=== PATIENT | female | born 1965 | race American Indian/Alaskan Native ===

== ENCOUNTER 2020-09-06 | Emergency (ER) | payer MEDICAID, MEDICARE ==
--- NOTE | 2020-09-06 00:29 | EDM.PDOC ---
ED HPI GENERAL MEDICAL PROBLEM - General Chief Complaint: ENT Problem Stated Complaint: TOOTH PAIN Time Seen by Provider: 09/06/20 00:29 Source of Information: Reports: Patient, Old Records, RN History Limitations: Reports: No Limitations - History of Present Illness INITIAL COMMENTS - FREE TEXT/NARRATIVE: 55 yo NA female presents with dental pain. She has an upcoming appt for removal of the rest of her teeth. Had a fever 3 d ago, but not since. No def'n facial swelling. Has end stage renal failure. Is concerned about taking anything that might hurt her kidneys. Her pain has been moving around in her mouth and fluctuating in severity. Has been using acetaminophen with partial benefit. Onset: Gradual Duration: Day(s):, Waxing/Waning Location: Reports: Face (mouth) Quality: Reports: Ache Severity: Moderate Improves with: Reports: Medication Worsens with: Reports: Other (time) Context: Reports: Other (See HPI) Associated Symptoms: Denies: Fever/Chills Treatments ORACLE APPLICATION ARCHITECT: Reports: Acetaminophen Right Lower Tooth/Teeth Pain Score (Numeric/FACES): 6 - Related Data Allergies Allergy/AdvReac Type Severity Reaction Status Date / Time No Known Allergies Allergy Verified 09/06/20 00:17 Home Meds: Home Meds . [Unable to Verify Home Med List] 09/06/20 [History] Past Medical History Genitourinary History: Reports: Chronic Renal Insuffiency, Renal Disease Social & Family History - Tobacco Use Tobacco Use Status *Q: Heavy Tobacco User Years of Tobacco use: 30 Packs/Tins Daily: 0.5 - Caffeine Use Caffeine Use: Reports: Coffee - Recreational Drug Use Recreational Drug Use: No ED ROS ENT - Review of Systems Review Of Systems: See Below Constitutional: Reports: No Symptoms HEENT: Reports: Dental Pain Respiratory: Reports: No Symptoms Cardiovascular: Reports: No Symptoms Endocrine: Reports: No Symptoms GI/Abdominal: Reports: No Symptoms : Reports: Other (has renal failure) Skin: Reports: No Symptoms Neurological: Reports: No Symptoms ED EXAM, ENT - Physical Exam Exam: See Below Exam Limited By: No Limitations General Appearance: Alert, WD/WN, No Apparent Distress, Thin Eye Exam: Bilateral Eye: Normal Inspection Ears: Normal External Exam, Normal Canal, Hearing Grossly Normal Nose: Normal Inspection, No Blood Mouth/Throat: Normal Lips, Dental Pain (many teeth decayed to the gum line. ). No: Normal Teeth Head: Atraumatic, Normocephalic. No: Facial Swelling Neck: Normal Inspection Respiratory/Chest: No Respiratory Distress Cardiovascular: Regular Rate, Rhythm Neurological: Alert, Oriented, CN II-XII Intact, Normal Cognition, No Mo tor/Sensory Deficits Psychiatric: Normal Affect, Normal Mood Skin: Warm, Dry, Intact, Normal Color, No Rash Course - Vital Signs Last Recorded V/S: Last Vital Signs Temp 36.2 C 09/06/20 00:15 Pulse 78 09/06/20 00:15 Resp 20 09/06/20 00:15 BP 184/97 H 09/06/20 00:15 Pulse Ox 100 09/06/20 00:15 Departure - Departure Time of Disposition: 00:43 Disposition: Home, Self-Care 01 Condition: Good Clinical Impression: Pain, dental - Discharge Information *PRESCRIPTION DRUG MONITORING PROGRAM REVIEWED*: No *COPY OF PRESCRIPTION DRUG MONITORING REPORT IN PATIENT ENOC: No Referrals: Rabia Basilio I COMPUTER TECH [Primary Care Provider] - Forms: ED Department Discharge Additional Instructions: Take either acetaminophen OR [place] for pain relief as needed. Take amoxicillin as directed for infection. See your oral surgeon as scheduled. Return as needed. Sepsis Event Note (ED) - Evaluation Sepsis Screening Result: No Definite Risk - Focused Exam Vital Signs: Vital Signs Temp Pulse Resp BP Pulse Ox 09/06/20 00:15 36.2 C 78 20 184/97 H 100
== END 2020-09-06 00:49 | disposition home or self-care (01) ==
LOC: JP.ED
DX: K02.9 Dental caries, unspecified (principal); N18.9 Chronic kidney disease, unspecified; Z72.0 Tobacco use
CPT/HCPCS: 99282

== ENCOUNTER 2020-11-30 10:56 | Emergency (ER) | payer SELFPAY ==
--- NOTE | 2020-11-30 11:32 | EDM.PDOC ---
ED HPI GENERAL MEDICAL PROBLEM - General Chief Complaint: ENT Problem Stated Complaint: TEETH PAIN Time Seen by Provider: 11/30/20 11:27 Source of Information: Reports: Patient, RN Notes Reviewed History Limitations: Reports: No Limitations - History of Present Illness INITIAL COMMENTS - FREE TEXT/NARRATIVE: 55-year-old female presents to the emergency department day complaint of dental pain, she has long history of dental problems and is scheduled for a consultation for having all of her teeth pulled and dentures however last couple days she has developed some swelling on her right side pain is under control no fevers Tooth/Teeth Pain Score (Numeric/FACES): 2 - Related Data Allergies Allergy/AdvReac Type Severity Reaction Status Date / Time No Known Allergies Allergy Verified 11/30/20 11:00 Home Meds: Home Meds NK [No Known Home Meds] 11/30/20 [History] Past Medical History Genitourinary History: Reports: Chronic Renal Insuffiency, Renal Disease Social & Family History - Tobacco Use Tobacco Use Status *Q: Light Tobacco User Years of Tobacco use: 30 Packs/Tins Daily: 0.5 - Caffeine Use Caffeine Use: Reports: Coffee - Recreational Drug Use Recreational Drug Use: Yes Recreational Drug Type: Reports: Marijuana/Hashish Recreational Drug Use Frequency: Rarely ED ROS ENT - Review of Systems Review Of Systems: See Below Constitutional: Denies: Fever, Chills HEENT: Reports: Dental Pain Respiratory: Reports: No Symptoms Cardiovascular: Reports: No Symptoms ED EXAM, ENT - Physical Exam Exam: See Below Text/Narrative:: Mouth mucosa is moist and pink, dentition is poor multiple broken teeth and multiple caries she does have some edema on the right side of her jaw and some tenderness to palpation on the right lower jaw Exam Limited By: No Limitations General Appearance: Alert, WD/WN, No Apparent Distress Course - Vital Signs Last Recorded V/S: Last Vital Signs Temp 97.3 F 11/30/20 11:04 Pulse 81 11/30/20 11:04 Resp 20 11/30/20 11:04 BP 168/87 H 11/30/20 11:04 Pulse Ox 97 11/30/20 11:04 Departure - Departure Time of Disposition: 11:32 Disposition: Home, Self-Care 01 Condition: Fair Clinical Impression: Dental abscess - Discharge Information Instructions: Dental Abscess, [id number] Referrals: Rabia Basilio NP [Primary Care Provider] - Additional Instructions: Take full course of antibiotics, please follow-up with dentistry as soon as possible Sepsis Event Note (ED) - Focused Exam Vital Signs: Vital Signs Temp Pulse Resp BP Pulse Ox 11/30/20 11:04 97.3 F 81 20 168/87 H 97 - Assessment/Plan Plan: Assessment Acuity = acute Site and laterality = dental abscess right lower jaw Etiology = dental caries and broken teeth poor dentition Manifestations = none Location of injury = Home Lab values = none Plan Elected to treat empirically amoxicillin 500 mg p.o. 3 times daily x10 days follow-up with dentistry as soon as possible This note was dictated using [id number] voice recognition software please call with any questions on syntax or grammar.
== END 2020-11-30 11:47 | disposition home or self-care (01) ==
LOC: JP.ED 10:56
DX: K04.7 Periapical abscess without sinus (principal); Z72.0 Tobacco use
CPT/HCPCS: 99282

== ENCOUNTER 2021-02-02 11:42 | Emergency (ER) | payer SELFPAY ==
--- NOTE | 2021-02-02 13:06 | EDM.PDOC ---
ED HPI GENERAL MEDICAL PROBLEM - General Chief Complaint: ENT Problem Stated Complaint: tooth pain Time Seen by Provider: 02/02/21 12:57 Source of Information: Reports: Patient, Old Records, RN Notes Reviewed History Limitations: Reports: No Limitations - History of Present Illness INITIAL COMMENTS - FREE TEXT/NARRATIVE: 55-year-old female presents emergency department day complaint of dental pain, she has longstanding history of chronic poor dentition is scheduled for tooth extraction with denture fitting next year. Her biggest concern is she started developing some pain has had dental abscess in the past and would like to be aggressive about it at this time and is mainly after antibiotics. She has not had any fevers no difficulty swallowing Oral/Mouth Pain Score (Numeric/FACES): 3 - Related Data Allergies Allergy/AdvReac Type Severity Reaction Status Date / Time No Known Allergies Allergy Verified 02/02/21 12:53 Home Meds: Home Meds amLODIPine [Norvasc] 2.5 mg PO DAILY 02/02/21 [History] Past Medical History Genitourinary History: Reports: Chronic Renal Insuffiency, Renal Disease APPLICATION SUPPORT ADMINISTRATOR History: Reports: Social & Family History - Tobacco Use Tobacco Use Status *Q: Never Tobacco User - Caffeine Use Caffeine Use: Reports: Coffee - Recreational Drug Use Recreational Drug Use: Yes Recreational Drug Type: Reports: Marijuana/Hashish Recreational Drug Use Frequency: Monthly ED ROS ENT - Review of Systems Review Of Systems: See Below Constitutional: Reports: No Symptoms HEENT: Reports: Dental Pain ED EXAM, ENT - Physical Exam Exam: See Below Text/Narrative:: Mouth mucosa is moist and pink no erythema or exudate known soft palate tongue is midline no is midline dentition is poor there is tenderness along dentition 2 through 5 Course - Vital Signs Last Recorded V/S: Last Vital Signs Temp 97.6 F 02/02/21 12:52 Pulse 70 02/02/21 12:52 Resp 15 02/02/21 12:52 BP 150/87 H 02/02/21 12:52 Pulse Ox 100 02/02/21 12:52 Departure - Departure Time of Disposition: 13:04 Disposition: Home, Self-Care 01 Condition: Fair Clinical Impression: Dental abscess, Pain, dental - Discharge Information Instructions: Dental Pain Referrals: Rabia Basilio I POLICE DISPATCHER [Primary Care Provider] - Additional Instructions: Take full course of antibiotics, keep your follow-up appointment with oral surgery, call return to the emergency department worsening of symptoms Sepsis Event Note (ED) - Evaluation Sepsis Screening Result: No Definite Risk - Focused Exam Vital Signs: Vital Signs Temp Pulse Resp BP Pulse Ox 02/02/21 12:52 97.6 F 70 15 150/87 H 100 02/02/21 12:04 97.6 F 70 15 150/87 H 100 - Assessment/Plan Plan: Assessment Acuity = acute Site and laterality = dental abscess Etiology = poor dentition Manifestations = none Location of injury = Home Lab values = none Plan Empirically treat amoxicillin 500 mg p.o. 3 times daily x10 days she will keep her appointment with her oral surgeon This note was dictated using [employer] voice recognition software please call with any questions on syntax or grammar.
== END 2021-02-02 13:27 | disposition home or self-care (01) ==
LOC: JP.ED 11:42
DX: K04.7 Periapical abscess without sinus (principal); N18.9 Chronic kidney disease, unspecified; Z79.899 Other long term (current) drug therapy
CPT/HCPCS: 99282